=== PATIENT | male | born 1960 | race Native Hawaiian/Other Pacific Islander ===

== ENCOUNTER 2016-07-16 08:40 | Day surgery (SDC) | payer BC ==
[2016-07-16 09:26] VITALS: BMI 27.4
[2016-07-16] MEDS ORDERED: Propofol 10 mg/ml Inj (20 ML) ONE (11:42)
[2016-07-16] MEDS ORDERED: Lactated Ringer's 1,000 ML IV SCH (12:15)
[2016-07-16 16:17] VITALS: O2SAT 100
[2016-07-16 16:20] VITALS: BP 126/83; PULSE 67; RESP 16; TEMP 97.3
== END 2016-07-16 13:20 | disposition home or self-care (01) ==
LOC: C.ENDO 08:40
PROVIDERS: ATTEND Internal Medicine Gastroenterology
DX: Z12.11 Encounter for screening for malignant neoplasm of colon (principal); D12.2 Benign neoplasm of ascending colon; K64.1 Second degree hemorrhoids; K31.7 Polyp of stomach and duodenum; K29.70 Gastritis, unspecified, without bleeding; R10.13 Epigastric pain
CPT/HCPCS: 43239; 43251; 45385; 88305; 88342; J2704; J7120